=== PATIENT | female | born 1945 | race Caucasian/White ===

== ENCOUNTER 2022-08-18 15:49 | Inpatient (IN) ==
[2022-08-18] MEDS ORDERED: Ondansetron 4 MG/2 ML VIAL IVP PRN (19:43)
[2022-08-18] MEDS ORDERED: Acetaminophen 325 MG TABLET PO PRN (19:43)
[2022-08-18] MEDS ORDERED: Naloxone 0.4 MG/ML INJ IVP PRN (19:43)
[2022-08-18] MEDS ORDERED: Melatonin 3 MG TABLET PO PRN (19:43)
[2022-08-18] MEDS ORDERED: D5% in Water 1,000 ML IVC PRN (19:47)
[2022-08-18] MEDS ORDERED: *HR* Dextrose 50 % in Water (Syg) 50 ML SYRINGE IVP PRN (19:47)
[2022-08-18] MEDS ORDERED: Dextrose Gel 15 GM/37.5 ML TUBE PO PRN ×2 (19:47)
[2022-08-18] MEDS ORDERED: *HR* Heparin 5,000 UNIT/ML VIAL IVP PRN ×2 (20:47)
[2022-08-18] MEDS: *HR* HYDROcodone/Acet 5/325 mg TABLET PO PRN (21:23)
[2022-08-18] MEDS: Heparin 25,000UNIT/250ML 1/2NS 25,000 UNIT/250 ML IV.SOLN IVC SCH (21:46)
[2022-08-18] MEDS: *HR* OxyCODONE Immed Rel 5 MG TABLET PO PRN (22:50)
[2022-08-19 03:04] LABS: Basophils # 0.1 K/mcL (0.0-0.2); Eosinophils # 0.2 K/mcL (0.0-0.6); Eosinophils % 3.4 %; Hematocrit 35.2 % (35.3-44.9); Hemoglobin 11.5 g/dL (11.5-15.4); Immature Granulocytes % 0.3 % (0-4); Lymphocytes # 1.4 K/mcL (0.6-4.6); Lymphocytes % 21.1 %; Mean Corpuscular HGB Conc 32.7 g/dL (31.6-35.5); Mean Corpuscular Hemoglobin 29.5 pg (28.0-33.3); Mean Corpuscular Volume 90.3 fL (83.0-100.0); Mean Platelet Volume 8.7 fL (9.4-12.4); Monocytes # 0.5 K/mcL (0.0-1.3); Monocytes % 7.5 %; Neutrophils # 4.5 K/mcL (1.6-8.9); Platelet Count 412 K/mcL (140-400); Red Cell Distribution Width 15.8 % (11.5-14.5); Segmented Neutrophils % 66.7 %; White Blood Count 6.7 K/mcL (4.3-11.1)
[2022-08-19 03:12] LABS: Estimated Average Glucose 117 mg/dl; Hemoglobin A1C 5.7 %
[2022-08-19] MEDS: *HR* HYDROcodone/Acet 5/325 mg TABLET PO PRN ×2 (05:03→14:34)
[2022-08-19 05:23] LABS: Calcium 9.2 mg/dL (8.6-10.3); Chol/HDL Ratio 3.2 (0-4.9); Magnesium 1.9 mg/dL (1.6-2.6); Phosphorous 3.2 mg/dL (2.7-4.5); Potassium 3.1 mEq/L (3.5-5.1)
[2022-08-19] MEDS: *HR* OxyCODONE Immed Rel 5 MG TABLET PO PRN ×2 (08:17→20:19)
[2022-08-20] MEDS: *HR* HYDROcodone/Acet 5/325 mg TABLET PO PRN ×2 (00:51→23:20)
[2022-08-20] MEDS: *HR* OxyCODONE Immed Rel 5 MG TABLET PO PRN ×2 (02:55→20:47)
[2022-08-20] MEDS ORDERED: Heparin 1,000 UNITS/500 mL 500 ML ONE ×3 (07:18→13:03)
[2022-08-20] MEDS ORDERED: *HR* FentaNYL (PF) 100 MCG/2 ML VIAL ONE ×3 (07:19→11:27)
[2022-08-20] MEDS ORDERED: *HR* Succinylcholine 200 MG/10 ML VIAL IVP ONE (07:19)
[2022-08-20] MEDS ORDERED: Lidocaine -MPF 2% 2 ML VIAL ONE (07:19)
[2022-08-20] MEDS ORDERED: *HR* Rocuronium Bromide 50 MG/5 ML VIAL ONE ×4 (07:19→12:20)
[2022-08-20] MEDS ORDERED: *HR* Propofol 200 MG/20 ML VIAL IVP ONE (07:19)
[2022-08-20] MEDS ORDERED: *HR* Phenylephrine 10 MG/ML VIAL ONE (07:22)
[2022-08-20] MEDS ORDERED: Iopamidol - 300 50 ML VIAL ONE (07:25)
[2022-08-20] MEDS ORDERED: Protamine Sulfate 50 MG/5 ML VIAL IVP ONE (07:25)
[2022-08-20] MEDS ORDERED: Albumin Human 5% 25.0 GM/500 ML IV.SOLN ONE (07:36)
[2022-08-20] MEDS ORDERED: NiCARdipine 2.5 MG/10 ML Syringe IVPB ONE (07:36)
[2022-08-20] MEDS ORDERED: *HR* Vasopressin 20 UNIT/ML VIAL ONE (07:36)
[2022-08-20] MEDS ORDERED: *HR* HYDROmorphone PF 0.5 MG/0.5 ML SYRINGE IVP PRN (07:38)
[2022-08-20] MEDS ORDERED: ceFAZolin 1,000 MG, Sodium Chloride IRRigation 1,000 ML IR ONE ×2 (07:45→19:40)
[2022-08-20] MEDS ORDERED: Heparin 1,000 UNITS/500 mL 1,000 ML ONE ×2 (07:47→07:54)
[2022-08-20] MEDS ORDERED: Ondansetron 4 MG/2 ML VIAL ONE ×2 (08:37→14:40)
[2022-08-20] MEDS ORDERED: Sugammadex Sodium 200 MG/2 ML VIAL IV ONE (08:57)
[2022-08-20] MEDS ORDERED: Ketamine HCL *QUVA* 50mg (1mL) SYRINGE ONE (09:09)
[2022-08-20] MEDS ORDERED: CeFAZolin Syr 2,000MG/20 ML 2,000 MG/20 ML SYRINGE IVPB ONE (09:45)
[2022-08-20 15:11] LABS: ABG Base Excess -3 mEq/L (-2 to 3); ABG Chloride 104 mEq/L (98-107); ABG Glucose 151 mg/dL (60-95); ABG HCO3 22 mEq/L (21-27); ABG Ionized Calcium 1.28 mmol/L (1.15-1.35); ABG Oxygen Saturation 100 % (95-98); ABG PCO2 36 mmHg (35-45); ABG PH 7.38 pH Units (7.32-7.45); ABG PO2 228 mmHg (85-104); ABG TCO2 23 mEq/L (20-26)
[2022-08-20] MEDS ORDERED: *HR* HYDROMORPHONE 2 MG/ML VIAL ONE (15:42)
[2022-08-20 15:48] LABS: ABG Base Excess 0 mEq/L (-2 to 3); ABG Chloride 106 mEq/L (98-107); ABG Glucose 93 mg/dL (60-95); ABG HCO3 24 mEq/L (21-27); ABG Ionized Calcium 1.21 mmol/L (1.15-1.35); ABG Oxygen Saturation 100 % (95-98); ABG PCO2 36 mmHg (35-45); ABG PH 7.43 pH Units (7.32-7.45); ABG PO2 187 mmHg (85-104); ABG TCO2 25 mEq/L (20-26)
[2022-08-20 17:44] LABS: Basophils % 0.1 %; Hematocrit 36.4 % (35.3-44.9); Hemoglobin 11.4 g/dL (11.5-15.4); Immature Granulocytes % 0.6 % (0-4); Lymphocytes # 1.1 K/mcL (0.6-4.6); Lymphocytes % 6.3 %; Mean Corpuscular HGB Conc 31.3 g/dL (31.6-35.5); Mean Corpuscular Hemoglobin 27.9 pg (28.0-33.3); Mean Platelet Volume 9.2 fL (9.4-12.4); Monocytes # 0.4 K/mcL (0.0-1.3); Monocytes % 2.1 %; Neutrophils # 15.7 K/mcL (1.6-8.9); Platelet Count 232 K/mcL (140-400); Red Blood Count 4.09 M/mcL (3.82-4.97); Red Cell Distribution Width 17.1 % (11.5-14.5); Segmented Neutrophils % 90.9 %
[2022-08-20 17:46] LABS: White Blood Count 17.3 K/mcL (4.3-11.1)
[2022-08-20] MEDS: Heparin 25,000UNIT/250ML 1/2NS 25,000 UNIT/250 ML IV.SOLN IVC SCH (18:25)
[2022-08-20 19:02] LABS: Basophils % 0.1 %; Hematocrit 35.6 % (35.3-44.9); Hemoglobin 11.2 g/dL (11.5-15.4); Immature Granulocytes % 0.8 % (0-4); Lymphocytes % 4.7 %; Mean Corpuscular HGB Conc 31.5 g/dL (31.6-35.5); Mean Platelet Volume 8.8 fL (9.4-12.4); Monocytes % 3.3 %; Platelet Count 223 K/mcL (140-400); Red Cell Distribution Width 17.4 % (11.5-14.5); Segmented Neutrophils % 91.1 %; White Blood Count 15.9 K/mcL (4.3-11.1)
[2022-08-20 19:03] LABS: Lymphocytes # 0.8 K/mcL (0.6-4.6); Monocytes # 0.5 K/mcL (0.0-1.3); Neutrophils # 14.5 K/mcL (1.6-8.9)
[2022-08-20 19:21] LABS: Calcium 8.5 mg/dL (8.6-10.3); Potassium 4.1 mEq/L (3.5-5.1)
[2022-08-20] MEDS ORDERED: Acetaminophen 325 MG TABLET PO PRN (19:40)
[2022-08-20] MEDS ORDERED: *HR* Dextrose 50 % in Water (Syg) 50 ML SYRINGE IVP PRN (19:40)
[2022-08-20] MEDS ORDERED: Melatonin 3 MG TABLET PO PRN (19:40)
[2022-08-20] MEDS ORDERED: *HR* Heparin 5,000 UNIT/ML VIAL IVP PRN ×2 (19:40)
[2022-08-20] MEDS ORDERED: Naloxone 0.4 MG/ML INJ IVP PRN ×2 (19:40)
[2022-08-20] MEDS ORDERED: D5% in Water 1,000 ML IVC PRN (19:40)
[2022-08-20] MEDS ORDERED: Dextrose Gel 15 GM/37.5 ML TUBE PO PRN ×2 (19:40)
[2022-08-20] MEDS: CeFAZolin 2 GM/120 ML BAG IVPB SCH (23:20)
[2022-08-20] MEDS: Ondansetron 4 MG/2 ML VIAL IVP PRN (23:30)
[2022-08-21] MEDS: *HR* Labetalol 20 MG/4 ML SYRINGE IVP PRN ×3 (01:27→19:43)
[2022-08-21] MEDS ORDERED: Prochlorperazine 10 MG/2 ML VIAL IVP ONE (01:39)
[2022-08-21] MEDS ORDERED: Naloxone 0.4 MG/ML INJ IVP PRN (01:41)
[2022-08-21] MEDS ORDERED: Ketorolac 30 MG/ML VIAL IVP PRN (01:44)
[2022-08-21] MEDS ORDERED: *HR* HYDROmorphone (PF) 1 MG/ML SYRINGE IVP ONE (02:06)
[2022-08-21] MEDS: Heparin 25,000UNIT/250ML 1/2NS 25,000 UNIT/250 ML IV.SOLN IVC SCH ×2 (04:16→23:14)
[2022-08-21] MEDS: *HR* OxyCODONE Immed Rel 5 MG TABLET PO PRN ×3 (04:25→16:43)
[2022-08-21] MEDS: CeFAZolin 2 GM/120 ML BAG IVPB SCH ×2 (08:12→16:16)
[2022-08-21 09:56] LABS: Basophils % 0.1 %; Hemoglobin 9.8 g/dL (11.5-15.4); Immature Granulocytes % 0.3 % (0-4); Lymphocytes # 0.4 K/mcL (0.6-4.6); Lymphocytes % 2.6 %; Mean Corpuscular HGB Conc 32.7 g/dL (31.6-35.5); Mean Corpuscular Hemoglobin 28.3 pg (28.0-33.3); Mean Corpuscular Volume 86.7 fL (83.0-100.0); Monocytes # 0.7 K/mcL (0.0-1.3); Monocytes % 4.6 %; Neutrophils # 13.6 K/mcL (1.6-8.9); Platelet Count 183 K/mcL (140-400); Red Blood Count 3.46 M/mcL (3.82-4.97); Red Cell Distribution Width 18.6 % (11.5-14.5); Segmented Neutrophils % 92.4 %; White Blood Count 14.8 K/mcL (4.3-11.1)
[2022-08-21 10:16] LABS: Calcium 8.1 mg/dL (8.6-10.3); Potassium 4.5 mEq/L (3.5-5.1)
[2022-08-21] MEDS: *HR* HYDROcodone/Acet 5/325 mg TABLET PO PRN ×2 (14:44→20:40)
[2022-08-21] MEDS: Ondansetron 4 MG/2 ML VIAL IVP PRN (14:57)
[2022-08-21] MEDS: 0.9 % Sodium Chloride 1,000 ML IVC SCH (15:26)
[2022-08-21 15:44] LABS: Basophils % 0.1 %; Hemoglobin 9.5 g/dL (11.5-15.4); Immature Granulocytes % 0.4 % (0-4); Lymphocytes # 0.4 K/mcL (0.6-4.6); Lymphocytes % 2.1 %; Mean Corpuscular HGB Conc 32.8 g/dL (31.6-35.5); Mean Corpuscular Hemoglobin 28.6 pg (28.0-33.3); Mean Corpuscular Volume 87.3 fL (83.0-100.0); Mean Platelet Volume 9.7 fL (9.4-12.4); Monocytes # 1.3 K/mcL (0.0-1.3); Monocytes % 6.7 %; Neutrophils # 16.9 K/mcL (1.6-8.9); Platelet Count 193 K/mcL (140-400); Red Blood Count 3.32 M/mcL (3.82-4.97); Red Cell Distribution Width 18.6 % (11.5-14.5); Segmented Neutrophils % 90.7 %; White Blood Count 18.7 K/mcL (4.3-11.1)
[2022-08-21] MEDS: Cefepime HCl 1,000 MG in 0.9 % Sodium Chloride 10 ML IVP SCH (19:43)
[2022-08-21 21:05] LABS: Hematocrit 25.2 % (35.3-44.9); Hemoglobin 8.4 g/dL (11.5-15.4)
[2022-08-22] MEDS: 0.9 % Sodium Chloride 1,000 ML IVC SCH ×3 (00:18→22:38)
[2022-08-22 03:13] LABS: Hematocrit 25.8 % (35.3-44.9); Hemoglobin 8.4 g/dL (11.5-15.4); Mean Corpuscular HGB Conc 32.6 g/dL (31.6-35.5); Mean Corpuscular Hemoglobin 28.2 pg (28.0-33.3); Mean Corpuscular Volume 86.6 fL (83.0-100.0); Mean Platelet Volume 9.7 fL (9.4-12.4); Platelet Count 162 K/mcL (140-400); Red Blood Count 2.98 M/mcL (3.82-4.97); Red Cell Distribution Width 18.6 % (11.5-14.5); White Blood Count 14.4 K/mcL (4.3-11.1)
[2022-08-22 03:19] LABS: INR 1.3; Prothrombin Time 14.4 Seconds (9.4-12.1)
[2022-08-22] MEDS: *HR* OxyCODONE Immed Rel 5 MG TABLET PO PRN ×2 (06:40→15:07)
[2022-08-22] MEDS: Cefepime HCl 1,000 MG in 0.9 % Sodium Chloride 10 ML IVP SCH ×2 (08:32→19:51)
[2022-08-22] MEDS: Ondansetron 4 MG/2 ML VIAL IVP PRN (11:47)
[2022-08-22] MEDS: *HR* HYDROcodone/Acet 5/325 mg TABLET PO PRN ×2 (12:25→19:51)
[2022-08-22 12:36] LABS: Amorphous Sediment,Urine Few per hpf (None-Few); Bacteria,Urine Few per hpf (None-Few); Bilirubin,Urine Negative (Negative); Blood,Urine Large (Negative); Clarity,Urine Ex.Turbid (Clear); Color,Urine Light-Orange (Yellow); Glucose,Urine (UA) Normal (Normal); Ketones,Urine Trace mg/dL (Negative); Leukocyte Esterase,Urine Small (Negative); Mucus,Urine Few per lpf (None-Few); Nitrite,Urine Negative (Negative); Protein,Urine 200 mg/dL (Neg-Trace); RBC,Urine TNTC per hpf (0-3); Specific Gravity,Urine 1.022 (1.010-1.025); Squamous Epithelial Cell,Urine Few per hpf (None-Few); Urobilinogen,Urine Normal (Normal); WBC,Urine 30-50 per hpf (0-3)
[2022-08-22] MEDS: *HR* Labetalol 20 MG/4 ML SYRINGE IVP PRN (14:11)
[2022-08-22] MEDS: Heparin 25,000UNIT/250ML 1/2NS 25,000 UNIT/250 ML IV.SOLN IVC SCH (19:44)
[2022-08-22] MEDS: *HR* HYDROmorphone (PF) 1 MG/ML SYRINGE IVP PRN (22:38)
[2022-08-23] MEDS: *HR* Labetalol 20 MG/4 ML SYRINGE IVP PRN (01:42)
[2022-08-23] MEDS: *HR* HYDROmorphone (PF) 1 MG/ML SYRINGE IVP PRN ×4 (03:39→22:07)
[2022-08-23] MEDS: 0.9 % Sodium Chloride 1,000 ML IVC SCH (08:02)
[2022-08-23] MEDS: Cefepime HCl 1,000 MG in 0.9 % Sodium Chloride 10 ML IVP SCH ×2 (08:04→20:28)
[2022-08-23] MEDS: *HR* OxyCODONE Immed Rel 5 MG TABLET PO PRN ×2 (09:19→20:28)
[2022-08-23] MEDS: *HR* HYDROcodone/Acet 5/325 mg TABLET PO PRN (12:34)
[2022-08-23 17:06] LABS: Calcium 7.9 mg/dL (8.6-10.3); Potassium 5.9 mEq/L (3.5-5.1)
[2022-08-23] MEDS: Sodium Bicarbonate 75 MEQ in 0.45 % Sodium Chloride 1,000 ML IVC SCH (17:56)
[2022-08-23] MEDS ORDERED: Vancomycin 500 MG in 0.9 % Sodium Chloride 250 ML IVPB SCH (18:00)
[2022-08-23] MEDS ORDERED: Vancomycin 500 MG in 0.9 % Sodium Chloride Mini Bag 100 ML IVPB ONE (18:00)
[2022-08-23 18:15] LABS: Basophils % 0.2 %; Hematocrit 25.7 % (35.3-44.9); Hemoglobin 8.4 g/dL (11.5-15.4); Immature Granulocytes % 0.6 % (0-4); Lymphocytes # 0.3 K/mcL (0.6-4.6); Lymphocytes % 1.5 %; Mean Corpuscular HGB Conc 32.7 g/dL (31.6-35.5); Mean Corpuscular Hemoglobin 28.7 pg (28.0-33.3); Mean Corpuscular Volume 87.7 fL (83.0-100.0); Mean Platelet Volume 9.5 fL (9.4-12.4); Monocytes # 0.9 K/mcL (0.0-1.3); Monocytes % 4.9 %; Neutrophils # 17.8 K/mcL (1.6-8.9); Nucleated Red Blood Cells 0.2 /100 WBC (0); Platelet Count 175 K/mcL (140-400); Red Blood Count 2.93 M/mcL (3.82-4.97); Red Cell Distribution Width 18.6 % (11.5-14.5); Segmented Neutrophils % 92.8 %; White Blood Count 19.2 K/mcL (4.3-11.1)
[2022-08-23 18:49] LABS: Burr Cells 1+ (Not Present); Polychromasia 1+ (Not Present)
[2022-08-23] MEDS: Heparin 25,000UNIT/250ML 1/2NS 25,000 UNIT/250 ML IV.SOLN IVC SCH (22:42)
[2022-08-24] MEDS: *HR* HYDROcodone/Acet 5/325 mg TABLET PO PRN ×2 (00:48→17:46)
[2022-08-24] MEDS: Sodium Bicarbonate 75 MEQ in 0.45 % Sodium Chloride 1,000 ML IVC SCH ×2 (05:04→17:40)
[2022-08-24 05:28] LABS: Hematocrit 24.5 % (35.3-44.9); Hemoglobin 7.9 g/dL (11.5-15.4); Mean Corpuscular HGB Conc 32.2 g/dL (31.6-35.5); Mean Corpuscular Hemoglobin 28.3 pg (28.0-33.3); Mean Corpuscular Volume 87.8 fL (83.0-100.0); Mean Platelet Volume 9.4 fL (9.4-12.4); Nucleated Red Blood Cells 0.2 /100 WBC (0); Platelet Count 175 K/mcL (140-400); Red Blood Count 2.79 M/mcL (3.82-4.97); Red Cell Distribution Width 18.7 % (11.5-14.5); White Blood Count 17.6 K/mcL (4.3-11.1)
[2022-08-24 05:48] LABS: Potassium 5.2 mEq/L (3.5-5.1)
[2022-08-24 05:59] LABS: Lymphocytes # 1.1 K/mcL (0.6-4.6); Monocytes # 0.7 K/mcL (0.0-1.3); Neutrophils # 15.8 K/mcL (1.6-8.9); Platelet Estimate Normal (Normal)
[2022-08-24] MEDS: *HR* HYDROmorphone (PF) 1 MG/ML SYRINGE IVP PRN ×2 (07:30→23:54)
[2022-08-24] MEDS: Cefepime HCl 1,000 MG in 0.9 % Sodium Chloride 10 ML IVP SCH ×2 (07:37→21:35)
[2022-08-24] MEDS: *HR* OxyCODONE Immed Rel 5 MG TABLET PO PRN ×2 (14:41→20:23)
[2022-08-24 18:35] LABS: Protein/Creatinine Ratio,Urine 4.36 mg/mg (0.00-0.20); Sodium, Urine 30.1 mEq/L
[2022-08-24] MEDS: Heparin 25,000UNIT/250ML 1/2NS 25,000 UNIT/250 ML IV.SOLN IVC SCH (21:18)
[2022-08-25] MEDS: *HR* HYDROmorphone (PF) 1 MG/ML SYRINGE IVP PRN ×4 (06:14→23:38)
[2022-08-25 07:06] LABS: Basophils % 0.2 %; Eosinophils % 0.2 %; Hematocrit 21.7 % (35.3-44.9); Hemoglobin 7.3 g/dL (11.5-15.4); Immature Granulocytes % 1.9 % (0-4); Lymphocytes # 0.3 K/mcL (0.6-4.6); Lymphocytes % 1.8 %; Mean Corpuscular HGB Conc 33.6 g/dL (31.6-35.5); Mean Corpuscular Hemoglobin 28.7 pg (28.0-33.3); Mean Corpuscular Volume 85.4 fL (83.0-100.0); Mean Platelet Volume 9.6 fL (9.4-12.4); Monocytes # 1.2 K/mcL (0.0-1.3); Monocytes % 6.2 %; Neutrophils # 16.7 K/mcL (1.6-8.9); Nucleated Red Blood Cells 0.5 /100 WBC (0); Platelet Count 189 K/mcL (140-400); Red Blood Count 2.54 M/mcL (3.82-4.97); Red Cell Distribution Width 18.2 % (11.5-14.5); Segmented Neutrophils % 89.7 %; White Blood Count 18.6 K/mcL (4.3-11.1)
[2022-08-25 07:21] LABS: Albumin 2.5 g/dL (3.5-5.7); Bilirubin,Total 0.5 mg/dL (0.3-1.0); Calcium 7.6 mg/dL (8.6-10.3); Globulin 2.5 g/dL (2.4-3.5); Magnesium 1.7 mg/dL (1.6-2.6); Phosphorous 5.7 mg/dL (2.7-4.5); Potassium 5.1 mEq/L (3.5-5.1)
[2022-08-25 08:01] LABS: Thyroid Stimulating Hormone 6.645 mcIU/mL (0.340-5.600); Uric Acid 7.4 mg/dL (2.3-7.6)
[2022-08-25] MEDS: Cefepime HCl 1,000 MG in 0.9 % Sodium Chloride 10 ML IVP SCH (08:07)
[2022-08-25] MEDS ORDERED: 0.9 % Sodium Chloride 250 ML ONE (09:11)
[2022-08-25 09:29] LABS: Rheumatoid Factor 16 IU/mL (Less than 14)
[2022-08-25 09:46] LABS: Vitamin B12 193 pg/mL (250-1100); Vitamin D 25 Hydroxy < 5 ng/mL (30-80)
[2022-08-25 09:50] LABS: Complement C3 119 mg/dL (87-200)
[2022-08-25 09:52] LABS: Hepatitis B Surface Antigen Nonreactive (Nonreactive)
[2022-08-25 10:21] LABS: Hepatitis B Core IgM Nonreactive (Nonreactive); Hepatitis C Virus Antibody Nonreactive (Nonreactive)
[2022-08-25 10:23] LABS: Hepatitis A Antibody IgM Nonreactive (Nonreactive)
[2022-08-25] MEDS: Sodium Bicarbonate 75 MEQ in 0.45 % Sodium Chloride 1,000 ML IVC SCH ×2 (11:49→23:33)
[2022-08-25] MEDS ORDERED: Ergocalciferol (VIT D2) 50,000 UNIT (1.25MG) CAP PO SCH (12:00)
[2022-08-25] MEDS ORDERED: Albuterol 2.5 MG/3 ML NEBULIZER IH PRN ×2 (12:18→16:41)
[2022-08-25] MEDS ORDERED: Ondansetron 4 MG/2 ML VIAL IVP PRN ×2 (12:18→16:41)
[2022-08-25] MEDS ORDERED: Cholecalciferol (D-3) 1,000 UNIT (25MCG) TABLET PO SCH (12:30)
[2022-08-25] MEDS ORDERED: *HR* FentaNYL (PF) 100 MCG/2 ML VIAL ONE ×2 (12:36→14:23)
[2022-08-25] MEDS ORDERED: *HR* Propofol 200 MG/20 ML VIAL IVP ONE (12:36)
[2022-08-25] MEDS ORDERED: Ondansetron 4 MG/2 ML VIAL ONE (12:36)
[2022-08-25] MEDS ORDERED: Lidocaine -MPF 2% 2 ML VIAL ONE (12:36)
[2022-08-25] MEDS ORDERED: Sugammadex Sodium 200 MG/2 ML VIAL IV ONE (12:36)
[2022-08-25] MEDS ORDERED: *HR* Rocuronium Bromide 50 MG/5 ML VIAL ONE (12:36)
[2022-08-25] MEDS: *HR* FentaNYL (PF) 100 MCG/2 ML VIAL IVP PRN ×4 (15:16→15:41)
[2022-08-25] MEDS ORDERED: Ringers Solution, Lactated 1,000 ML ONE (15:39)
[2022-08-25] MEDS ORDERED: Acetaminophen IV 1,000 MG/100 ML BAG IVPB ONE (15:51)
[2022-08-25] MEDS: Ondansetron 4 MG/2 ML VIAL IVP PRN (16:02)
[2022-08-25] MEDS ORDERED: *HR* Heparin 5,000 UNIT/ML VIAL IVP PRN ×2 (16:41)
[2022-08-25] MEDS ORDERED: *HR* Dextrose 50 % in Water (Syg) 50 ML SYRINGE IVP PRN (16:41)
[2022-08-25] MEDS ORDERED: Dextrose Gel 15 GM/37.5 ML TUBE PO PRN ×2 (16:41)
[2022-08-25] MEDS ORDERED: Heparin 25,000UNIT/250ML 1/2NS 25,000 UNIT/250 ML IV.SOLN IVC SCH (16:41)
[2022-08-25] MEDS ORDERED: Acetaminophen 325 MG TABLET PO PRN (16:41)
[2022-08-25] MEDS ORDERED: Melatonin 3 MG TABLET PO PRN (16:41)
[2022-08-25] MEDS ORDERED: D5% in Water 1,000 ML IVC PRN (16:41)
[2022-08-25] MEDS ORDERED: Naloxone 0.4 MG/ML INJ IVP PRN (16:41)
[2022-08-25] MEDS ORDERED: ceFAZolin 2,000 MG in 0.9 % Sodium Chloride 100 ML IVPB ONE (16:58)
[2022-08-25 17:19] LABS: Mean Corpuscular HGB Conc 33.7 g/dL (31.6-35.5); Mean Corpuscular Hemoglobin 28.3 pg (28.0-33.3); Mean Corpuscular Volume 84.1 fL (83.0-100.0); Mean Platelet Volume 9.2 fL (9.4-12.4); Platelet Count 179 K/mcL (140-400); Red Blood Count 3.21 M/mcL (3.82-4.97); White Blood Count 19.1 K/mcL (4.3-11.1)
[2022-08-25 17:22] LABS: Hemoglobin 9.1 g/dL (11.5-15.4)
[2022-08-25] MEDS ORDERED: ceFAZolin 1,000 MG, Sodium Chloride IRRigation 1,000 ML IR ONE ×2 (17:35)
[2022-08-25] MEDS: *HR* Labetalol 20 MG/4 ML SYRINGE IVP PRN ×2 (20:46→22:43)
[2022-08-25] MEDS ORDERED: Cefepime HCl 1,000 MG in 0.9 % Sodium Chloride 10 ML IVP SCH (21:00)
[2022-08-25 23:51] LABS: Hematocrit 25.3 % (35.3-44.9); Hemoglobin 8.6 g/dL (11.5-15.4)
[2022-08-26] MEDS: *HR* Labetalol 20 MG/4 ML SYRINGE IVP PRN (02:10)
[2022-08-26] MEDS: *HR* HYDROmorphone (PF) 1 MG/ML SYRINGE IVP PRN ×3 (04:36→22:33)
[2022-08-26 06:09] LABS: Basophils % 0.2 %; Hematocrit 25.4 % (35.3-44.9); Hemoglobin 8.5 g/dL (11.5-15.4); Immature Granulocytes % 3.2 % (0-4); Lymphocytes # 0.3 K/mcL (0.6-4.6); Lymphocytes % 1.6 %; Mean Corpuscular HGB Conc 33.5 g/dL (31.6-35.5); Mean Corpuscular Hemoglobin 28.3 pg (28.0-33.3); Mean Corpuscular Volume 84.7 fL (83.0-100.0); Mean Platelet Volume 9.7 fL (9.4-12.4); Monocytes # 0.9 K/mcL (0.0-1.3); Monocytes % 5.3 %; Neutrophils # 14.7 K/mcL (1.6-8.9); Nucleated Red Blood Cells 0.3 /100 WBC (0); Platelet Count 194 K/mcL (140-400); Red Cell Distribution Width 17.5 % (11.5-14.5); Segmented Neutrophils % 89.7 %; White Blood Count 16.4 K/mcL (4.3-11.1)
[2022-08-26 06:27] LABS: Albumin 2.3 g/dL (3.5-5.7); Bilirubin,Total 0.4 mg/dL (0.3-1.0); Calcium 7.4 mg/dL (8.6-10.3); Globulin 2.4 g/dL (2.4-3.5); Potassium 5.4 mEq/L (3.5-5.1); Total Protein 4.7 g/dL (6.4-8.9)
[2022-08-26] MEDS: Ondansetron 4 MG/2 ML VIAL IVP PRN (07:53)
[2022-08-26] MEDS: *HR* OxyCODONE Immed Rel 5 MG TABLET PO PRN (10:13)
[2022-08-26] MEDS: Cholecalciferol (D-3) 1,000 UNIT (25MCG) TABLET PO SCH (10:14)
[2022-08-26] MEDS: amLODIPine 5 MG TABLET PO SCH (13:13)
[2022-08-26] MEDS: Metoclopramide 10 MG/2 ML VIAL IVP SCH ×2 (13:13→17:58)
[2022-08-26] MEDS: *HR* HYDROcodone/Acet 5/325 mg TABLET PO PRN (13:14)
[2022-08-26] MEDS: Sodium Bicarbonate 75 MEQ in 0.45 % Sodium Chloride 1,000 ML IVC SCH (14:57)
[2022-08-26] MEDS ORDERED: Cefepime HCl 1,000 MG in 0.9 % Sodium Chloride 10 ML IVP SCH (21:00)
[2022-08-27] MEDS: Metoclopramide 10 MG/2 ML VIAL IVP SCH ×3 (00:37→11:53)
[2022-08-27] MEDS: Sodium Bicarbonate 75 MEQ in 0.45 % Sodium Chloride 1,000 ML IVC SCH (02:58)
[2022-08-27] MEDS: *HR* HYDROmorphone (PF) 1 MG/ML SYRINGE IVP PRN ×2 (04:59→18:07)
[2022-08-27 06:11] LABS: Basophils % 0.2 %; Eosinophils % 0.2 %; Hematocrit 23.7 % (35.3-44.9); Hemoglobin 7.9 g/dL (11.5-15.4); Immature Granulocytes % 2.8 % (0-4); Lymphocytes # 0.4 K/mcL (0.6-4.6); Lymphocytes % 2.2 %; Mean Corpuscular HGB Conc 33.3 g/dL (31.6-35.5); Mean Corpuscular Hemoglobin 28.5 pg (28.0-33.3); Mean Corpuscular Volume 85.6 fL (83.0-100.0); Mean Platelet Volume 9.5 fL (9.4-12.4); Monocytes % 5.8 %; Neutrophils # 15.2 K/mcL (1.6-8.9); Nucleated Red Blood Cells 0.2 /100 WBC (0); Platelet Count 237 K/mcL (140-400); Red Blood Count 2.77 M/mcL (3.82-4.97); Red Cell Distribution Width 17.3 % (11.5-14.5); Segmented Neutrophils % 88.8 %; White Blood Count 17.1 K/mcL (4.3-11.1)
[2022-08-27 06:33] LABS: Calcium 7.2 mg/dL (8.6-10.3); Magnesium 1.7 mg/dL (1.6-2.6); Phosphorous 6.5 mg/dL (2.7-4.5); Potassium 5.1 mEq/L (3.5-5.1)
[2022-08-27] MEDS: Albumin 25% 25gram/100mL 25 GM/100 ML IV.SOLN IVPB SCH ×3 (08:21→23:42)
[2022-08-27] MEDS: Cholecalciferol (D-3) 1,000 UNIT (25MCG) TABLET PO SCH (08:22)
[2022-08-27] MEDS: amLODIPine 5 MG TABLET PO SCH (08:22)
[2022-08-27] MEDS ORDERED: 0.9 % Sodium Chloride 250 ML IVC PRN (10:18)
[2022-08-27] MEDS ORDERED: Furosemide 40 MG/4 ML VIAL IVP ONE (10:20)
[2022-08-27] MEDS ORDERED: 0.9 % Sodium Chloride 2,000 ML PRIME SCH (10:30)
[2022-08-27 10:51] LABS: Kappa Qnt Free Light Chains 33.18 mg/L (3.30-19.40); Lambda Qnt Free Light Chains 33.53 mg/L (5.71-26.30)
[2022-08-27] MEDS ORDERED: *HR* Heparin 5,000 UNIT/ML VIAL ONE (14:14)
[2022-08-28] MEDS: *HR* HYDROmorphone (PF) 1 MG/ML SYRINGE IVP PRN (03:52)
[2022-08-28 04:31] LABS: Basophils % 0.1 %; Eosinophils % 0.3 %; Nucleated Red Blood Cells 0.1 /100 WBC (0)
[2022-08-28 04:32] LABS: Eosinophils # 0.1 K/mcL (0.0-0.6); Hematocrit 16.6 % (35.3-44.9); Immature Granulocytes % 1.6 % (0-4); Lymphocytes # 0.3 K/mcL (0.6-4.6); Lymphocytes % 1.6 %; Mean Corpuscular HGB Conc 33.1 g/dL (31.6-35.5); Mean Corpuscular Hemoglobin 28.1 pg (28.0-33.3); Mean Corpuscular Volume 84.7 fL (83.0-100.0); Mean Platelet Volume 9.8 fL (9.4-12.4); Monocytes # 0.9 K/mcL (0.0-1.3); Neutrophils # 16.1 K/mcL (1.6-8.9); Platelet Count 196 K/mcL (140-400); Red Blood Count 1.96 M/mcL (3.82-4.97); Red Cell Distribution Width 17.2 % (11.5-14.5); Segmented Neutrophils % 91.4 %; White Blood Count 17.6 K/mcL (4.3-11.1)
[2022-08-28] MEDS ORDERED: 0.9 % Sodium Chloride 250 ML IVC SCH (04:45)
[2022-08-28 04:46] LABS: Hemoglobin 5.5 g/dL (11.5-15.4)
[2022-08-28 04:54] LABS: Calcium 7.8 mg/dL (8.6-10.3); Magnesium 1.7 mg/dL (1.6-2.6); Phosphorous 4.6 mg/dL (2.7-4.5); Potassium 3.8 mEq/L (3.5-5.1)
[2022-08-28 05:06] LABS: Hypochromasia Present (Not Present); Microcytosis Present (Not Present); Platelet Estimate Normal (Normal)
[2022-08-28] MEDS ORDERED: 0.9 % Sodium Chloride 250 ML IVC PRN (06:43)
[2022-08-28] MEDS ORDERED: *HR* Heparin 10,000 UNIT/10 ML VIAL IV PRN (08:01)
[2022-08-28] MEDS ORDERED: Ipratropium/Albuterol Neb 3 ML IH PRN (08:34)
[2022-08-28] MEDS: amLODIPine 5 MG TABLET PO SCH (08:48)
[2022-08-28] MEDS: Cholecalciferol (D-3) 1,000 UNIT (25MCG) TABLET PO SCH (08:48)
[2022-08-28] MEDS: cefTRIAXone 1,000 MG in Water for inj. (sterile) 10 ML IVP SCH (08:49)
[2022-08-28] MEDS: Albumin 25% 25gram/100mL 25 GM/100 ML IV.SOLN IVPB SCH (08:49)
[2022-08-28 10:18] LABS: Hematocrit 24.6 % (35.3-44.9)
[2022-08-28 10:19] LABS: Hemoglobin 8.2 g/dL (11.5-15.4)
[2022-08-28] MEDS: *HR* OxyCODONE Immed Rel 5 MG TABLET PO PRN (11:22)
[2022-08-28] MEDS ORDERED: Ergocalciferol (VIT D2) 50,000 UNIT (1.25MG) CAP PO SCH (12:15)
[2022-08-28] MEDS ORDERED: D10% in Water 500 ML IVC PRN (13:22)
[2022-08-28] MEDS ORDERED: Clinimix 5%-20% SOLUTION 2,000 ML with MVI, adult with vitamin K 10 ML, Sodium Phosph... IVC SCH (17:00)
[2022-08-28] MEDS: *HR* HYDROcodone/Acet 5/325 mg TABLET PO PRN (17:24)
[2022-08-28] MEDS: Pantoprazole 40 MG VIAL IVP SCH (18:52)
[2022-08-28] MEDS: Insulin LISPRO 300 UNITS/3 ML VIAL SUBQ SCH (19:28)
[2022-08-28 20:19] LABS: Hematocrit 21.1 % (35.3-44.9); Hemoglobin 7.2 g/dL (11.5-15.4)
[2022-08-29] MEDS: Insulin LISPRO 300 UNITS/3 ML VIAL SUBQ SCH ×4 (03:23→16:53)
[2022-08-29] MEDS: Pantoprazole 40 MG VIAL IVP SCH ×2 (05:10→16:55)
[2022-08-29 06:30] LABS: Albumin/Globulin Ratio 1.9 (1.1-2.2); Bilirubin,Total 0.4 mg/dL (0.3-1.0); Calcium 7.8 mg/dL (8.6-10.3); Globulin 1.6 g/dL (2.4-3.5); Magnesium 1.7 mg/dL (1.6-2.6); Phosphorous 2.7 mg/dL (2.7-4.5); Potassium 3.4 mEq/L (3.5-5.1); Total Protein 4.6 g/dL (6.4-8.9)
[2022-08-29] MEDS: cefTRIAXone 1,000 MG in Water for inj. (sterile) 10 ML IVP SCH (09:04)
[2022-08-29] MEDS: amLODIPine 5 MG TABLET PO SCH (09:18)
[2022-08-29] MEDS: Cholecalciferol (D-3) 1,000 UNIT (25MCG) TABLET PO SCH (09:18)
[2022-08-29] MEDS: *HR* Labetalol 20 MG/4 ML SYRINGE IVP PRN ×2 (09:19→15:36)
[2022-08-29] MEDS ORDERED: *HR* Heparin 10,000 UNIT/10 ML VIAL IV PRN ×2 (09:31)
[2022-08-29] MEDS ORDERED: 0.9 % Sodium Chloride 250 ML IVC PRN (09:31)
[2022-08-29 09:44] LABS: Hematocrit 20.4 % (35.3-44.9)
[2022-08-29 09:48] LABS: ABG Base Excess 6 mEq/L (-2 to 3); ABG HCO3 30 mEq/L (21-27); ABG Oxygen Saturation 95 % (95-98); ABG PCO2 39 mmHg (35-45); ABG PH 7.49 pH Units (7.32-7.45); ABG PO2 67 mmHg (85-104); ABG TCO2 31 mEq/L (20-26)
[2022-08-29 12:48] LABS: Hepatitis B Surface Antibody < 3.10 mIU/mL
[2022-08-29 12:59] LABS: Hepatitis B Surface Antigen Nonreactive (Nonreactive)
[2022-08-29] MEDS: Fat Emulsion 250 ML IVPB SCH (16:55)
[2022-08-29] MEDS ORDERED: Clinimix E 5%-15% SOLUTION 2,000 ML with MVI, adult with vitamin K 10 ML IVC SCH (17:00)
[2022-08-29 17:45] LABS: Hematocrit 19.8 % (35.3-44.9); Hemoglobin 6.8 g/dL (11.5-15.4)
[2022-08-29] MEDS ORDERED: 0.9 % Sodium Chloride 250 ML IVC SCH (18:30)
[2022-08-29] MEDS: *HR* HYDROcodone/Acet 5/325 mg TABLET PO PRN (21:37)
[2022-08-30] MEDS: Insulin LISPRO 300 UNITS/3 ML VIAL SUBQ SCH ×4 (00:30→17:11)
[2022-08-30] MEDS: *HR* Labetalol 20 MG/4 ML SYRINGE IVP PRN (00:57)
[2022-08-30 04:24] LABS: Basophils % 0.2 %; Eosinophils # 0.3 K/mcL (0.0-0.6); Eosinophils % 2.1 %; Hematocrit 26.6 % (35.3-44.9); Immature Granulocytes % 1.9 % (0-4); Lymphocytes # 0.4 K/mcL (0.6-4.6); Lymphocytes % 2.2 %; Mean Corpuscular HGB Conc 33.8 g/dL (31.6-35.5); Mean Corpuscular Hemoglobin 28.8 pg (28.0-33.3); Mean Platelet Volume 10.4 fL (9.4-12.4); Monocytes # 0.7 K/mcL (0.0-1.3); Monocytes % 4.2 %; Neutrophils # 14.5 K/mcL (1.6-8.9); Platelet Count 210 K/mcL (140-400); Red Blood Count 3.13 M/mcL (3.82-4.97); Red Cell Distribution Width 15.6 % (11.5-14.5); Segmented Neutrophils % 89.4 %; White Blood Count 16.3 K/mcL (4.3-11.1)
[2022-08-30 04:59] LABS: Albumin 2.6 g/dL (3.5-5.7); Albumin/Globulin Ratio 1.3 (1.1-2.2); Bilirubin,Total 0.3 mg/dL (0.3-1.0); Calcium 7.7 mg/dL (8.6-10.3); Magnesium 1.7 mg/dL (1.6-2.6); Phosphorous 2.6 mg/dL (2.7-4.5); Potassium 3.5 mEq/L (3.5-5.1); Total Protein 4.6 g/dL (6.4-8.9)
[2022-08-30] MEDS: Pantoprazole 40 MG VIAL IVP SCH ×2 (06:44→17:12)
[2022-08-30] MEDS: cefTRIAXone 1,000 MG in Water for inj. (sterile) 10 ML IVP SCH (09:02)
[2022-08-30] MEDS: Cholecalciferol (D-3) 1,000 UNIT (25MCG) TABLET PO SCH (09:02)
[2022-08-30] MEDS: amLODIPine 5 MG TABLET PO SCH (09:02)
[2022-08-30] MEDS: *HR* OxyCODONE Immed Rel 5 MG TABLET PO PRN ×2 (11:55→18:33)
[2022-08-30 13:19] LABS: Hematocrit 29.3 % (35.3-44.9); Hemoglobin 9.9 g/dL (11.5-15.4)
[2022-08-30] MEDS ORDERED: Clinimix E 5%-15% SOLUTION 2,000 ML with MVI, adult with vitamin K 10 ML IVC SCH (17:00)
[2022-08-30] MEDS: Fat Emulsion 250 ML IVPB SCH (17:12)
[2022-08-30] MEDS: *HR* HYDROcodone/Acet 5/325 mg TABLET PO PRN (22:44)
[2022-08-31] MEDS: Insulin LISPRO 300 UNITS/3 ML VIAL SUBQ SCH ×4 (02:37→18:09)
[2022-08-31] MEDS: *HR* HYDROmorphone (PF) 1 MG/ML SYRINGE IVP PRN ×4 (02:37→21:38)
[2022-08-31] MEDS: Pantoprazole 40 MG VIAL IVP SCH ×2 (05:12→17:18)
[2022-08-31 06:33] LABS: Bilirubin,Total 0.3 mg/dL (0.3-1.0); Calcium 7.8 mg/dL (8.6-10.3); Magnesium 1.7 mg/dL (1.6-2.6); Phosphorous 3.4 mg/dL (2.7-4.5); Potassium 4.1 mEq/L (3.5-5.1)
[2022-08-31 06:34] LABS: Albumin 2.6 g/dL (3.5-5.7); Albumin/Globulin Ratio 1.3 (1.1-2.2); Total Protein 4.6 g/dL (6.4-8.9)
[2022-08-31 07:51] LABS: Urine Collection Volume RANDOM mL
[2022-08-31] MEDS: cefTRIAXone 1,000 MG in Water for inj. (sterile) 10 ML IVP SCH (09:44)
[2022-08-31] MEDS: Cholecalciferol (D-3) 1,000 UNIT (25MCG) TABLET PO SCH (09:45)
[2022-08-31] MEDS: amLODIPine 5 MG TABLET PO SCH (09:45)
[2022-08-31] MEDS: *HR* Labetalol 20 MG/4 ML SYRINGE IVP PRN (09:45)
[2022-08-31 12:26] LABS: Hematocrit 27.6 % (35.3-44.9)
[2022-08-31] MEDS: Ondansetron 4 MG/2 ML VIAL IVP PRN (14:34)
[2022-08-31 15:54] VITALS: TEMP 98.2
[2022-08-31] MEDS ORDERED: Clinimix E 5%-20% SOLUTION 2,000 ML with MVI, adult with vitamin K 10 ML IVC SCH (17:00)
[2022-08-31] MEDS: Fat Emulsion 250 ML IVPB SCH (17:19)
[2022-08-31 18:20] VITALS: BP 151/42; PULSE 84; O2SAT 93
[2022-08-31] MEDS ORDERED: *HR* HYDROmorphone (PF) 1 MG/ML SYRINGE IVP ONE (23:58)
[2022-09-03 17:32] LABS: Alpha 2 Globulin (PEP) 0.99 g/dL (0.48-1.05); Beta Globulin (PEP) 0.47 g/dL (0.48-1.10)
[2022-09-05 07:04] LABS: IFE Reflexed IFE Done; Immunoglobulin A 92 mg/dL (68-408); Immunoglobulin G 418 mg/dL (768-1632); Immunoglobulin M 63 mg/dL (35-263)
== END 2022-08-31 23:59 | disposition other institution (70) | DRG 270 ==
LOC: 3NENU → SUATTDRO 18:41 → 2NNU 08-20 18:01
PROVIDERS: ADMIT Hospitalist; ATTEND Internal Medicine